=== PATIENT | male | born 1960 | race Caucasian/White ===

== ENCOUNTER → 2016-09-26 | Outpatient (CLI) | payer OTHER ==
[~2016-09-26] MED LIST: ASPI1TAB24 PO; ATOR1TAB19 PO; BIMA01SOL OU; IBUPOTC PO; LISI20TA PO; MULT1TAB10 PO
[2016-09-26 19:58] LABS: ANION GAP 6 MEQ/L (8-16); BLOOD UREA NITROGEN 23 MG/DL (7-18); CALCIUM LEVEL 9.3 MG/DL (8.5-10.1); CARBON DIOXIDE LEVEL 30 MEQ/L (21-32); CHLORIDE LEVEL 104 MEQ/L (98-107); CREATININE FOR GFR 1.17 MG/DL (0.70-1.30); GLOMERULAR FILTRATION RATE > 60.0 (>56); GLUCOSE, FASTING 106 MG/DL (70-105); POTASSIUM SERUM 4.5 MEQ/L (3.5-5.1); SODIUM LEVEL 140 MEQ/L (136-145)
== END ==
LOC: M LRY 12:07
PROVIDERS: ATTEND Nurse Practitioner Family
DX: E11.9 Type 2 diabetes mellitus without complications (principal); I10 Essential (primary) hypertension

== ENCOUNTER → 2016-10-02 | Day surgery (SDC) | payer OTHER ==
[~2016-10-02] VITALS: Ht 180.3 cm; Wt 89.8 kg
[~2016-10-02] MED LIST changes: +BUPIVACAINE/EPIN 0.25% 30 ML VIAL As Ordered ONE; +GLYCOPYRROLATE INJ 0.2 MG/ML 2 ML VIAL As Ordered ONE; +HYDROmorphone HCL 2 MG/ML 1ML VIAL (J1170) As Ordered ONE; +KETOROLAC 60 MG/2 ML VIAL (J1885) As Ordered ONE; +LR 1,000 ML IV SCH; +METOCLOPRAMIDE INJ 10MG/2ML VIAL (J2765) As Ordered ONE; +MIDAZOLAM INJ 2 MG/2 ML VIAL (J2250) As Ordered ONE; +MORPHINE 2 MG/ML 1ML SYRINGE IV PRN; +NEOSTIGMINE 1MG/ML 5 ML SYRINGE (J2710) As Ordered ONE; +NORCO, ANEXSIA 5/325MG TABLET (HYDROcodone/ACETAMINOPHEN) PO PRN; +ONDANSETRON 4MG/2ML VIAL (J2405) As Ordered ONE; +ONDANSETRON 4MG/2ML VIAL (J2405) IV PRN; +PROPOFOL 500 MG/50 ML VIAL As Ordered ONE; +ROCURONIUM BROMIDE 50 MG/5 ML VIAL As Ordered ONE; +ceFAZolin 1GM INJ (J0690) As Ordered ONE; +ceFAZolin SOD 1 GM in D5W MINI-BAG PLUS 50 ML IV ONE; +dexameTHASONE 4 MG/ML 1ML VIAL (J1100) As Ordered ONE; +ePHEDrine SULFATE 25 MG/5 ML(5MG/ML) SYRINGE As Ordered ONE; +fentaNYL 100 MCG/2 ML INJECTION (J3010) As Ordered ONE; +fentaNYL 100 MCG/2 ML INJECTION (J3010) IV PRN
[2016-10-02] MEDS: PERCOCET 5MG/325MG TAB PO PRN ×2 (12:33→13:56)
--- NOTE | 2016-10-02 12:34 | RO ---
DATE OF PROCEDURE: 10/02/2016 PREOPERATIVE DIAGNOSIS: Right inguinal hernia. POSTOPERATIVE DIAGNOSIS: Right inguinal hernia. PROCEDURE: Laparoscopic right inguinal hernia repair with 3DMax mesh (TEPP). SURGEON: Dr. Erik Dominguez NIKE ATHLETE: ANESTHESIA: General endotracheal anesthesia. ESTIMATED BLOOD LOSS: Minimal. FLUIDS: Crystalloid. BRIEF PROCEDURE SUMMARY: The patient was brought to the operating room and was general anesthesia. After adequate anesthesia and preoperative antibiotics were given, the patient was prepped and draped in a sterile fashion. Next, a periumbilical incision was made with skin knife. Electrocautery was used cut through dermis and underlying subcutaneous tissue down to the rectus muscle itself and a combination of blunt dissection was performed to the posterior rectus muscle and the balloon dissector was placed in the preperitoneal space and insufflated under direct visualization. The rectus muscle was seen anteriorly, the peritoneum posteriorly, and thus the stationary balloon was placed in the preperitoneal space and insufflated to 15 mm of pressure. Two 5 mm trocars were placed inferior to the umbilicus under direct visualization. Next, the loose areolar tissue on the backside of the pubis was taken down with hook cautery and this was performed onto the Parker's ligament on the left-hand side, but mostly on to the right-hand side, where this was followed to the valley between the vessels and the bladder. The area lateral to the inguinal canal was not taken down very well and there was some residual posterior rectus fascia that seemed to continue down further in this area. Eventually, this was opened bluntly and then a very large lipoma of the cord was found. This was mobilized into the preperitoneal space. On the medial aspect of this was a hernia; however, the hernia sac itself was covered with a great deal of fatty tissue. Eventually, I was able to get the hernia sac off the cord structures and where the cord structures/vas dove deep into the pelvis. This is where the dissection continued to. Once the peritoneum was mobilized off these structures adequately, the preperitoneal fat/lipoma of the cord was reduced. Then, a 3DMax mesh medium was placed in the preperitoneal space and tacked into place using AbsorbaTack on the lateral border of Parker's and on the tail the mesh. The preperitoneal space was desufflated under direct visualization revealing the preperitoneal fat as well as the hernia sac and the appropriate size of the mesh. All trocars were removed under direct visualization. #0 Vicryl was used close fascia at the umbilicus and all incisions were closed with #4-0 Vicryl. Steri-Strips and a dry sterile dressing was applied. The patient was awakened, extubated, brought to recovery room awake, alert, and hemodynamically stable. Sponge and needle counts were correct times two.
[2016-10-02 16:30] VITALS: BP 147/68
== END | disposition home or self-care (01) ==
LOC: M SDC 07:29
PROVIDERS: ATTEND Surgery
DX: K40.90 Unilateral inguinal hernia, without obstruction or gangrene, not specified as recurrent (principal); I10 Essential (primary) hypertension; E11.9 Type 2 diabetes mellitus without complications; E78.00 Pure hypercholesterolemia, unspecified; K63.5 Polyp of colon; R06.83 Snoring; Z91.030 Bee allergy status; Z79.899 Other long term (current) drug therapy; Z79.82 Long term (current) use of aspirin
CPT/HCPCS: 49650; C1781; J0690; J1100; J1170; J1885; J2250; J2405; J2710; J2765; J3010

== ENCOUNTER → 2017-02-08 | Outpatient (CLI) | payer OTHER ==
[~2017-02-08] MED LIST changes: +ASPI-161 PO; -ASPI1TAB24 PO; -BUPIVACAINE/EPIN 0.25% 30 ML VIAL As Ordered ONE; -GLYCOPYRROLATE INJ 0.2 MG/ML 2 ML VIAL As Ordered ONE; -HYDROmorphone HCL 2 MG/ML 1ML VIAL (J1170) As Ordered ONE; -KETOROLAC 60 MG/2 ML VIAL (J1885) As Ordered ONE; -LR 1,000 ML IV SCH; -METOCLOPRAMIDE INJ 10MG/2ML VIAL (J2765) As Ordered ONE; -MIDAZOLAM INJ 2 MG/2 ML VIAL (J2250) As Ordered ONE; -MORPHINE 2 MG/ML 1ML SYRINGE IV PRN; -NEOSTIGMINE 1MG/ML 5 ML SYRINGE (J2710) As Ordered ONE; -NORCO, ANEXSIA 5/325MG TABLET (HYDROcodone/ACETAMINOPHEN) PO PRN; -ONDANSETRON 4MG/2ML VIAL (J2405) As Ordered ONE; -ONDANSETRON 4MG/2ML VIAL (J2405) IV PRN; -PROPOFOL 500 MG/50 ML VIAL As Ordered ONE; -ROCURONIUM BROMIDE 50 MG/5 ML VIAL As Ordered ONE; -ceFAZolin 1GM INJ (J0690) As Ordered ONE; -ceFAZolin SOD 1 GM in D5W MINI-BAG PLUS 50 ML IV ONE; -dexameTHASONE 4 MG/ML 1ML VIAL (J1100) As Ordered ONE; -ePHEDrine SULFATE 25 MG/5 ML(5MG/ML) SYRINGE As Ordered ONE; -fentaNYL 100 MCG/2 ML INJECTION (J3010) As Ordered ONE; -fentaNYL 100 MCG/2 ML INJECTION (J3010) IV PRN
[2017-02-08 13:49] LABS: MEAN CORPUSCULAR HEMOGLOBIN 29.9 pg (27.0-33.0); MEAN CORPUSCULAR HGB CONC 33.8 g/dl (32.0-36.5); MEAN CORPUSCULAR VOLUME 88.3 fl (80.0-96.0); RED CELL DISTRIBUTION WIDTH 12.9 % (11.5-14.5); WHITE BLOOD COUNT 4.4 K/mm3 (4.0-10.0)
[2017-02-08 13:52] LABS: ALBUMIN 4.1 GM/DL (3.2-5.2); ALBUMIN/GLOBULIN RATIO 1.28 (1.00-1.93); ALKALINE PHOSPHATASE 54 U/L (45-117); ALT/SGPT 47 U/L (12-78); ANION GAP 4 MEQ/L (8-16); AST/SGOT 22 U/L (15-37); BILIRUBIN,TOTAL 0.8 MG/DL (0.2-1.0); BLOOD UREA NITROGEN 18 MG/DL (7-18); CALCIUM LEVEL 9.1 MG/DL (8.5-10.1); CARBON DIOXIDE LEVEL 32 MEQ/L (21-32); CHLORIDE LEVEL 106 MEQ/L (98-107); CHOLESTEROL LEVEL 116 MG/DL (<200); CREATININE FOR GFR 0.79 MG/DL (0.70-1.30); GLOMERULAR FILTRATION RATE > 60.0 (>56); GLUCOSE, FASTING 106 MG/DL (70-105); POTASSIUM SERUM 4.4 MEQ/L (3.5-5.1); SODIUM LEVEL 142 MEQ/L (136-145); TOTAL PROTEIN 7.3 GM/DL (6.4-8.2); TRIGLYCERIDES LEVEL 83 MG/DL (<150)
== END ==
LOC: M SMT 08:56
PROVIDERS: ATTEND Internal Medicine Cardiovascular Disease
DX: R94.31 Abnormal electrocardiogram [ECG] [EKG] (principal); E78.00 Pure hypercholesterolemia, unspecified; E11.9 Type 2 diabetes mellitus without complications; R35.1 Nocturia
CPT/HCPCS: 36415; 80053; 80061; 83036; 85027; G0103

== ENCOUNTER 2017-08-16 12:02 | Day surgery (SDC) | payer OTHER ==
[2017-08-16] MEDS: LR 1,000 ML IV (13:00)
[2017-08-16] MEDS ORDERED: PROPOFOL 200 MG/20 ML VIAL As Ordered ×2 (15:54)
[2017-08-16] MEDS: LIDOCAINE 1% MDV INJ 50 ML VIAL As Ordered (15:55)
== END 2017-08-16 16:55 | disposition home or self-care (01) ==
LOC: M SDC 12:02
DX: I44.1 Atrioventricular block, second degree (principal); I45.2 Bifascicular block; R94.31 Abnormal electrocardiogram [ECG] [EKG]; I10 Essential (primary) hypertension; I42.0 Dilated cardiomyopathy; E78.5 Hyperlipidemia, unspecified; Z91.030 Bee allergy status; E11.9 Type 2 diabetes mellitus without complications; Z79.82 Long term (current) use of aspirin; Z79.899 Other long term (current) drug therapy
CPT/HCPCS: 33282

== ENCOUNTER 2018-01-11 07:33 | Day surgery (SDC) | payer OTHER ==
[2018-01-11] MEDS ORDERED: LR 1,000 ML IV ×3 (07:45→14:30)
[2018-01-11] MEDS ORDERED: LIDOCAINE 1% MDV 20ML VIAL SQ (07:45)
[2018-01-11] MEDS ORDERED: ROCURONIUM BROMIDE 50 MG/5 ML VIAL As Ordered ×3 (11:28→13:06)
[2018-01-11] MEDS ORDERED: dexameTHASONE 4 MG/ML 1ML VIAL (J1100) As Ordered (11:29)
[2018-01-11] MEDS ORDERED: METOCLOPRAMIDE INJ 10MG/2ML VIAL (J2765) As Ordered (11:29)
[2018-01-11] MEDS ORDERED: GLYCOPYRROLATE INJ 0.2 MG/ML 2 ML VIAL As Ordered ×4 (11:29→12:29)
[2018-01-11] MEDS ORDERED: ONDANSETRON 4MG/2ML VIAL (J2405) As Ordered (11:29)
[2018-01-11] MEDS ORDERED: fentaNYL 250 MCG/5 ML INJECTION (J3010) As Ordered (11:29)
[2018-01-11] MEDS ORDERED: PROPOFOL 200 MG/20 ML VIAL As Ordered (11:29)
[2018-01-11] MEDS ORDERED: MIDAZOLAM INJ 2 MG/2 ML VIAL (J2250) As Ordered (11:29)
[2018-01-11] MEDS ORDERED: LIDOCAINE 2% INJ 100 MG/5 ML SDV (FOR ANES.) As Ordered (11:29)
[2018-01-11] MEDS ORDERED: KETOROLAC 60 MG/2 ML VIAL (J1885) As Ordered (11:29)
[2018-01-11] MEDS ORDERED: ePHEDrine SULFATE 25 MG/5 ML(5MG/ML) SYRINGE As Ordered (11:35)
[2018-01-11] MEDS ORDERED: NEOSTIGMINE 10 MG/10 ML VIAL (J2710) As Ordered (12:29)
[2018-01-11] MEDS: ceFAZolin SOD 1 GM in D5W MINI-BAG PLUS 50 ML IV (13:30)
[2018-01-11] MEDS: BUPIVACAINE/EPIN 0.25% 30 ML VIAL As Ordered ×2 (13:30→13:45)
[2018-01-11] MEDS ORDERED: MORPHINE 4 MG/ML 1ML VIAL/SYRINGE (J2270) IV (14:15)
[2018-01-11] MEDS ORDERED: ONDANSETRON 4MG/2ML VIAL (J2405) IV ×2 (14:15→14:30)
[2018-01-11] MEDS ORDERED: NORCO, ANEXSIA 5/325MG TABLET (HYDROcodone/ACETAMINOPHEN) PO (14:15)
[2018-01-11] MEDS ORDERED: fentaNYL 100 MCG/2 ML INJECTION (J3010) IV (14:30)
[2018-01-11] MEDS: PERCOCET 5MG/325MG TAB PO (15:00)
== END 2018-01-11 18:25 | disposition home or self-care (01) ==
LOC: M SDC 18:25
DX: K40.91 Unilateral inguinal hernia, without obstruction or gangrene, recurrent (principal); K66.0 Peritoneal adhesions (postprocedural) (postinfection); Z53.31 Laparoscopic surgical procedure converted to open procedure; I10 Essential (primary) hypertension; K21.9 Gastro-esophageal reflux disease without esophagitis; Z79.82 Long term (current) use of aspirin; Z79.899 Other long term (current) drug therapy; Z88.8 Allergy status to other drugs, medicaments and biological substances; Z91.030 Bee allergy status
CPT/HCPCS: 49651

== ENCOUNTER 2019-03-30 11:24 | Day surgery (SDC) | payer OTHER ==
[~2019-03-30] VITALS: Ht 180.3 cm; Wt 96.6 kg
[~2019-03-30 11:24] MED LIST changes: +ATOR40TA75 PO; +COEN1POW PO; +COQ1100C PO; +FIBE625T PO; +LISI10TA4 PO; -LISI20TA PO; +LISI20TA19 PO; +LR 1,000 ML IV ONE; +LUTE6CAP2 PO; +MULTTAB12 PO; +ceFAZolin SOD 2 GM in IV 1 EA IV ONE
[2019-03-30] MEDS ORDERED: AMIODARONE HCL 360 MG/200 ML PREMIXED BAG (NEXTERONE) As Ordered ONE (12:58)
[2019-03-30] MEDS ORDERED: LIDOCAINE 1% SDV INJ 30 ML VIAL As Ordered ONE (12:58)
[2019-03-30] MEDS ORDERED: ISOVUE-300 61% 50ML VIAL (Q9967) As Ordered ONE (12:58)
[2019-03-30] MEDS ORDERED: BACITRACIN PWD 50,000 UNITS VIAL As Ordered ONE (12:58)
[2019-03-30] MEDS ORDERED: MIDAZOLAM INJ 2 MG/2 ML VIAL (J2250) As Ordered ONE (13:30)
[2019-03-30] MEDS ORDERED: fentaNYL 100 MCG/2 ML INJECTION (J3010) As Ordered ONE (13:30)
[2019-03-30] MEDS ORDERED: PROPOFOL 200 MG/20 ML VIAL As Ordered ONE ×2 (13:30→14:03)
[2019-03-30] MEDS ORDERED: PHENYLephrine HCL 500 MCG/5 ML (100MCG/ML) SYRINGE (J2370) As Ordered ONE (13:49)
[2019-03-30] MEDS ORDERED: PERCOCET 5MG/325MG TAB PO PRN (14:45)
[2019-03-30] MEDS ORDERED: LR 1,000 ML IV SCH (14:45)
[2019-03-30] MEDS ORDERED: ONDANSETRON 4MG/2ML VIAL (J2405) IV PRN (14:45)
[2019-03-30] MEDS ORDERED: METOCLOPRAMIDE INJ 10MG/2ML VIAL (J2765) IV PRN (14:45)
[2019-03-30] MEDS ORDERED: fentaNYL 100 MCG/2 ML INJECTION (J3010) IV PRN (14:45)
[2019-03-30 15:35] VITALS: BP 133/71
--- NOTE | 2019-03-30 18:50 | RO ---
DATE OF PROCEDURE: 03/30/2019 PROCEDURE 1. Implantation of permanent dual-chamber pacemaker. 2. Extraction of implanted loop recorder. IMPLANTING METAL BOX MAKER: Dr. Aly Carlin ANESTHESIOLOGIST: Dr. Delvalle TYPE OF ANESTHESIA: Monitored local anesthesia. PREOPERATIVE DIAGNOSIS 1. Intermittent high-grade AV block. 2. Abnormal EKG with baseline first-degree AV block, left anterior hemiblock and right bundle branch block. 3. Dilated cardiomyopathy. POSTOPERATIVE DIAGNOSIS 1. Intermittent high-grade AV block. 2. Abnormal EKG with baseline first-degree AV block, left anterior hemiblock and right bundle branch block. 3. Dilated cardiomyopathy. CLINICAL SUMMARY This 58-year-old father of one, resident of [place], [place] has been known to our cardiology practice since 2016 was referred initially for abnormal preoperative EKG. Echocardiogram September 2016 showed a slightly dilated left ventricle that was hyperkinetic with mildly dilated left atrium, but normal right heart chamber sizes and estimated pulmonary arterial pressure. Valvular structures appeared and functioned normally. Stress testing October 2016 confirmed good exercise tolerance limited by leg fatigue. No significant EKG change or arrhythmia, borderline increased pulmonary uptake at peak exercise only, dilated left ventricle with left ventricular ejection fraction (LVEF) of 66%. Normal myocardial perfusion images. Initial event monitor May 2017 for 30 days did show occasional second- degree AV block Mobitz type 1, but no significant bradyarrhythmia with lowest recorded rate of 59 bpm. He underwent implanted loop recorder placement July 2017 in light of his underlying cardiomyopathy and conduction disturbance. We have been monitoring this on a regular basis and recent transmissions have shown intermittent marked nocturnal high- grade AV block with rates as low as 23 beats per minute. The patient himself has been virtually free of cardiovascular complaint. In light of this intermittent high-grade AV block and has diffuse conduction disease a permanent dual-chamber pacemaker was recommended as there was no potentially reversible factor. PHYSICAL EXAMINATION: On examination, he is fairly well-developed, healthy-appearing gentleman with slight facial plethora, no pallor or cyanosis. Normal oral moisture. Trachea midline. Neck veins were not elevated. Normal-appearing chest configuration and expansion with clear lung stephens. Apical impulse at the mid clavicular line fifth intercostal space. Variable S1 with accentuated S2 and persistent S2 splitting. S4, but no S3 gallop. No audible murmur. Normal carotid upstrokes with slightly variable volume related to his intermittent AV conduction problems. No bruits. Peripheral pulses were symmetrical and normal. No dependent edema. His abdomen is soft and nontender. No organomegaly. Last chemistry and blood work showed a hemoglobin of 14.3 with normal white blood cell count and platelet count. Electrolytes were normal with potassium 4.6, BUN 21, creatinine 0.7, glucose 124. EKG March 27, 2019 showed normal sinus rhythm at 80 bpm. Left atrial conduction disturbance. ID interval at rest upper limits of normal with left anterior hemiblock and right bundle branch block. DESCRIPTION OF PROCEDURE In the fasting state having signed informed consent and having received Ancef 2 grams IV premedication, the patient was taken to the operating theater. Numerous skin electrodes were applied to facilitate continuous electrocardiographic monitoring. The left subclavian region was prepped and draped in usual fashion and the skin was infiltrated with 1% Xylocaine. The left axillary vein was catheterized using the micropuncture technique and a 5-cm linear incision was made several centimeters below and parallel to the left clavicle. Dissection was carried down to the level with pectoralis fascia and a pocket was fashioned below the level of the incision line. Two bipolar screw-in active fixation steroid eluting pacing leads were then positioned to the right ventricular outflow tract and high right atrial appendage under fluoroscopic and electrocardiographic control. The right ventricular lead ([employer] model #VIU5331O/58, serial #[id number]) measurements were: Stimulation threshold 0.6V/0.4 ms/impedance 850 ohms. The R wave amplitude measured 10.4 mV. The atrial lead ([employer] model #OPW1734S/52, serial #[id number]) measurements were: Stimulation threshold 0.6V/0.4 ms/impedance 490 ohms. The P wave amplitude measured 4.1 mV. These leads were secured in position with sleeves sutured at their insertion site. They were then connected to a dual-chamber pulse generator ([employer] - Assurity, MRI compatible, model #AB9216, serial #[id number]) and appropriate, DDD pacing was documented. The generator was placed in the pocket and secured in position with a suture through the upper right-hand corner of the epoxy header. The subcutaneous tissues were approximated using a running chromic suture and skin was closed using zoey. A dry dressing was applied. His old implanted loop recorder site was infiltrated with 1% Xylocaine and a 1 cm incision was made over the same area. We used forceps to dissect the subcutaneous tissues and were able to hold onto is implanted loop recorder and extract it without difficulty. (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 This small incision was closed using subcutaneous chromic suture two aid with hemostasis and three zoey on skin. The patient was then taken to recovery room and was in good condition. No apparent complications. ESTIMATED BLOOD LOSS: 10 mL Once he is able to tolerate by mouth (p.o.) and ambulate we will discontinue his IV and he will be able to go home. We have discussed the importance of performing only light activities of daily living with his left arm and avoiding getting his incision wet until he comes to our office for wound check and staple removal April 10, 2019 at 09:30 a.m.. For the next 24 hours he will be wearing a left arm sling. He should be able to drive safely tomorrow and should be able to resume much of his customary activities by April 04, 2019. His home medications will resume lisinopril - hydrochlorothiazide 20/12.5 1 tablet every a.m. and 10 mg of lisinopril as every p.m., atorvastatin 40 mg daily and aspirin 81 mg daily. He takes Lumigan 0.01% eye drops each night each eye at bedtime. He also takes Centrum Silver 1 tablet daily. Should he have any problems with abnormal erythema, swelling or discharge he has been encouraged to contact our office promptly. SHELBY
--- NOTE | 2019-04-01 09:56 | ECGEPIP ---
[facility] Test Date: 2019-03-30 Pat Name: GEOVANNY GRAY Department: Room: - Gender: Male Director Of Enterprise Applications: [place] : 1960 Requested By: Aly Carlin Order Number: [id number] Reading MD: Alvaro De Paz Measurements Intervals [place] Rate: 63 P: IA: 0 QRS: 32 QRSD: 165 T: -82 QT: 439 QTc: 452 Interpretive Statements SINUS RHYTHM A SENSED V PACED RHYTHM ELECTRONIC VENTRICULAR PACEMAKER ABNORMAL RHYTHM ECG NO PRIOR Electronically Signed on 04-01-2019 9:55:45 EDT by Alvaro De Paz
== END 2019-03-30 16:07 | disposition home or self-care (01) ==
LOC: M SDC 11:24
PROVIDERS: ATTEND Internal Medicine Cardiovascular Disease
DX: I44.1 Atrioventricular block, second degree (principal); I42.0 Dilated cardiomyopathy; I45.10 Unspecified right bundle-branch block; E11.9 Type 2 diabetes mellitus without complications; I10 Essential (primary) hypertension; E78.49 Other hyperlipidemia; G47.30 Sleep apnea, unspecified; Z79.82 Long term (current) use of aspirin; Z79.899 Other long term (current) drug therapy; Z91.030 Bee allergy status; Z88.8 Allergy status to other drugs, medicaments and biological substances
CPT/HCPCS: 33208; 33286; 71045; 76000; 93005; C1785; C1898; J0690; J2250; J2370; J3010

== ENCOUNTER → 2022-04-17 | Outpatient (REF) | payer OTHER ==
[~2022-04-17] MED LIST changes: +LISI10TA22 PO; -LISI10TA4 PO; -LISI20TA19 PO; +LISI20TA35 PO; -LR 1,000 ML IV ONE; -ceFAZolin SOD 2 GM in IV 1 EA IV ONE
[2022-04-17 17:04] LABS: APPEARANCE, URINE MANUAL CLEAR (CLEAR); BILIRUBIN, URINE MANUAL NEGATIVE (NEGATIVE); BLOOD URINE MANUAL NEGATIVE (NEGATIVE); COLOR, URINE MANUAL LT YELLOW (YELLOW); GLUCOSE, URINE (UA) MANUAL NEGATIVE (NEGATIVE); KETONE, URINE MANUAL NEGATIVE (NEGATIVE); LEUKOCYTE ESTERASE, URINE MAN NEGATIVE (NEGATIVE); NITRITE, URINE MANUAL NEGATIVE (NEGATIVE); PROTEIN, URINE MANUAL NEGATIVE (NEGATIVE); SPECIFIC GRAVITY,URINE MANUAL 1.015 (1.002-1.035); UROBILINOGEN, URINE MANUAL NORMAL (NORMAL)
== END ==
LOC: M LAB REF 16:15
PROVIDERS: ATTEND Internal Medicine
DX: Z01.810 Encounter for preprocedural cardiovascular examination (principal)

== ENCOUNTER 2024-09-14 23:24 | Emergency (ER) | payer OTHER, MEDICARE ==
[~2024-09-14] VITALS: Ht 180.3 cm; Wt 99.2 kg
[~2024-09-14 23:24] MED LIST changes: -ASPI-161 PO; +ASPI-615 PO
[2024-09-14] MEDS ORDERED: LOSA50TA28 PO (23:43)
[2024-09-15 00:29] LABS: INR 0.92; PROTHROMBIN TIME 12.7 SECONDS (12.5-14.5)
[2024-09-15 00:37] LABS: CK-MB VALUE MASS 3.3 NG/ML (<3.6); LIPASE 56 U/L (12-53)
[2024-09-15 00:39] LABS: ALBUMIN 4.1 G/DL (3.2-5.2); ALKALINE PHOSPHATASE 62 U/L (40-129); ALT/SGPT 45 U/L (7.0-40); AST/SGOT 29 U/L (<34); BILIRUBIN,DIRECT 0.1 MG/DL (<0.4); BILIRUBIN,TOTAL 0.5 MG/DL (0.3-1.2); BLOOD UREA NITROGEN 21 MG/DL (9-23); CALCIUM LEVEL 9.2 MG/DL (8.3-10.6); CARBON DIOXIDE LEVEL 28 MMOL/L (20-31); CHLORIDE LEVEL 107 MMOL/L (98-107); CREATININE FOR GFR 0.74 MG/DL (0.70-1.30); GLOMERULAR FILTRATION RATE > 60.0 (>49); GLUCOSE, FASTING 112 MG/DL (74-106); POTASSIUM SERUM 4.3 MMOL/L (3.5-5.1); SODIUM LEVEL 142 MMOL/L (136-145); TOTAL PROTEIN 7.4 G/DL (5.7-8.2)
[2024-09-15 00:43] LABS: CPK CREATINE PHOSPHOKINASE 290 U/L (46-171); MB/CK RELATIVE INDEX 1.13 (< OR =4)
[2024-09-15 00:47] LABS: BASO % 0.1 % (0.0-1.0); EOS # 0.1 10^3/uL (0.0-0.5); EOS % 1.3 % (0.0-3.0); HEMATOCRIT 43.7 % (42.0-52.0); HEMOGLOBIN 14.3 g/dl (13.5-17.5); LYMPH # 1.9 10^3/uL (1.5-5.0); MEAN CORPUSCULAR HEMOGLOBIN 28.7 pg (27.0-33.0); MEAN CORPUSCULAR HGB CONC 32.7 g/dl (32.0-36.5); MEAN CORPUSCULAR VOLUME 87.8 fl (80.0-96.0); MONO # 0.8 10^3/uL (0.0-0.8); MONO % 9.6 % (2.0-8.0); NEUTROPHILS # 5.6 10^3/uL (1.5-8.5); NEUTROPHILS % 66.6 % (36.0-66.0); PLATELET COUNT, AUTOMATED 279 10^3/uL (150-450); RED BLOOD COUNT 4.98 10^6/uL (4.30-6.10); WHITE BLOOD COUNT 8.4 10^3/uL (4.0-10.0)
[2024-09-15 03:28] LABS: MAGNESIUM LEVEL 2.1 MG/DL (1.8-2.4)
[2024-09-15 05:00] VITALS: BP 155/84; TEMP 98; O2SAT 98
== END 2024-09-15 05:01 | disposition home or self-care (01) ==
LOC: M ED 23:24
DX: I10 Essential (primary) hypertension (principal); I25.119 Atherosclerotic heart disease of native coronary artery with unspecified angina pectoris; I45.10 Unspecified right bundle-branch block; F41.9 Anxiety disorder, unspecified; Z85.46 Personal history of malignant neoplasm of prostate; Z88.8 Allergy status to other drugs, medicaments and biological substances; Z91.030 Bee allergy status; Z79.1 Long term (current) use of non-steroidal anti-inflammatories (NSAID); Z79.899 Other long term (current) drug therapy; Z79.810 Long term (current) use of selective estrogen receptor modulators (SERMs)